=== PATIENT | male | born 1975 | race Caucasian/White ===

== ENCOUNTER 2016-09-11 00:17 | Emergency (ER) | payer OTHER ==
--- NOTE | ~2016-09-11 | CR252 ---
[facility] A Service of [facility] & [facility] RADIOLOGY TEXT RESULTS PATIENT: PALMIRA GONZÁLES LOCATION: [facility] : 77 UNIT #: [id number] AGE: [address]: Jorge Knapp MD SEX: M ORDER DR: [id number] [facility] [address] [facility]. [place], [place] [address] [id number] MR#: [id number] Acc #: [id number] NAME: PALMIRA GONZÁLES : 1975 SEX: M STUDY DATE/TIME: 09/11/2016 1:24 UNIT: [facility] ROOM: STUDY DESCRIPTION: CR Tibia and Fibula 2 Views Lt Attending Physician: Jorge Knapp M.D. Ordering Physician: Jorge Knapp M.D. Primary Care Physician: Rosetta Bullock M.D. MEDICAL IMAGING REPORT This report is preliminary unless electronic signature is present EXAM Left tibia and fibula INDICATION Fell off portable chest 5 days ago with continued pain in tibia and fibula region. FINDINGS AP and lateral views of the tibia and fibula were obtained. There is a metal plate in the proximal tibia with multiple screws. There is no fracture visible. IMPRESSION No evidence of acute injury in the tibia or fibula. Dictated by... Clint Caro M.D. THIS IS AN ELECTRONICALLY VERIFIED REPORT Clint Caro M.D. at 09/11/2016 5:53 AM YENIFER/caty TD: 09/11/2016 02:45 JOB #: [id number] MEDICAL IMAGING REPORT Page 1 of 1 COPY
[~2016-09-11 00:17] MED LIST: DIAZEPAM10 MG PO; FLEXERIL PO; HYDROCODON-ACE1 EAC9 PO; IBUPROFEN PO; KEPPRA250 MG PO; KEPPRA750 M1 PO; KLONOPIN PO; KLONOPIN1 MG PO; MEDROL PO; MOTRIN600 M2 PO; PAROXETINE HCL20 M1 PO; PHENERGAN DM PO; PROAIR HFA8.5 GM IH; SERTRALINE HCL50 M1 PO; TEGRETOL PO; ULTRAM PO; VICODIN 5/500 T1 TAB PO; ZITHROMAX PO; ZOFRAN PO
== END 2016-09-11 02:28 | disposition home or self-care (01) ==
LOC: CED 00:17
DX: S81.812A Laceration without foreign body, left lower leg, initial encounter (principal); L03.116 Cellulitis of left lower limb; F43.10 Post-traumatic stress disorder, unspecified; F31.9 Bipolar disorder, unspecified; J45.909 Unspecified asthma, uncomplicated; Z79.899 Other long term (current) drug therapy; W18.30XA Fall on same level, unspecified, initial encounter; Y92.9 Unspecified place or not applicable
CPT/HCPCS: 73590; 99284

== ENCOUNTER 2016-09-25 21:03 | Inpatient (IN) | payer OTHER ==
[~2016-09-25] VITALS: Ht 188 cm; Wt 83.9 kg
--- NOTE | ~2016-09-25 | PN ---
Unit #: [id number] #: [id number] Patient: PALMIRA GONZÁLES [id number] [facility] [address] [place] [address] [id number] I MR#: [id number] NAME: PALMIRA GONZÁLES ROOM: [facility] Age: 41 Sex: M Admission Date: 09/25/2016 : 1975 Attending Physician: Jw Valencia M.D. Admitting Physician: Jw Valencia M.D. Primary Care Physician: Christen Webster PROGRESS NOTES DATE 09/30/2016 DISCUSSION The patient is abed today and complaining of worsening suicidal ideation. It is his report that his parents have told them that he will not be able to return to the domicile he previously shared with them, and he is expressing great despair over this and reports recurrent suicidal ideation. I have gently but firmly redirected the patient's expectations of inpatient care, and he will be provided with information regarding homeless resources in the [facility]. Dictated by... Jw Valencia M.D. CB/bzg TD: 09/30/2016 13:56 JOB #: [id number] [facility] PROGRESS NOTES Page 1 of 1 X Jw Valencia MD X PROGRESS NOTE
--- NOTE | ~2016-09-25 | HP ---
Unit #: [id number] #: [id number] Patient: PALMIRA GONZÁLES [id number] [place] [address] [id number] I MR#: [id number] NAME: PALMIRA GONZÁLES ROOM: P121 Age: 41 Sex: M Admission Date: 09/25/2016 : 1975 Attending Physician: Jw Valencia M.D. Admitting Physician: Jw Valencia M.D. Primary Care Physician: Rosetta Bullock M.D. HISTORY AND PHYSICAL HISTORY OF PRESENT ILLNESS The patient is a 41-year-old male, admitted to [address] [place] [address] on 09/25/2016, for suicidal ideations and psychosis. PAST MEDICAL HISTORY 1. Seizure disorder. 2. Asthma. 3. Headache. PAST SURGICAL HISTORY Left leg. SOCIAL HISTORY He is disabled and homeless. He dips tobacco but denies alcohol and drug use. FAMILY MEDICAL HISTORY Noncontributory. ALLERGIES No known drug allergies. CURRENT MEDICATIONS Include: 1. Prazosin 2. Valproic acid 3. Diclofenac 4. Seroquel 5. Effexor 6. Gabapentin 7. Vistaril 8. Tramadol 9. Klonopin 10. Doxycycline 11. Keppra 12. Augmentin 13. Lortab REVIEW OF SYSTEMS CONSTITUTIONAL: No fever or chills. The patient complains of a headache. HEENT: Denies any sore throat, ear pain or runny nose. CARDIOVASCULAR: Denies chest pain, irregular heart rhythm or palpitations. CHEST: Denies shortness of breath or cough. No hemoptysis. Unit #: [id number] #: [id number] Patient: PALMIRA GONZÁLES GASTROINTESTINAL: Denies nausea, vomiting, diarrhea or chronic constipation. ENDOCRINE: Denies history of increased thirst or urination. No recent significant weight loss or gain. GENITOURINARY: Denies dysuria, frequency, or hematuria. SKIN: Denies any rashes. HEMATOLOGIC: Denies history of increased bleeding or bruising. MUSCULOSKELETAL: Denies any hot, swollen joints. No generalized muscle pain. NEUROLOGIC: Denies problems with vision or speech. No frequent, severe headaches. No numbness, tingling or weakness in any extremities. Denies loss of bladder or bowel control. PHYSICAL EXAMINATION GENERAL: Note that he is awake, alert, oriented, and in no acute distress. VITAL SIGNS: Temperature 98.7, heart rate 86, respirations 16, blood pressure 138/83. HEIGHT: 6 feet 2 inches. WEIGHT: 185 pounds. SKIN: Warm and dry without rash or lesion. HEENT: Normocephalic. TMs not viewed. Oral and nasal passages clear. Conjunctivae clear. PERRLA. EOMs intact. NECK: Supple without lymphadenopathy or thyromegaly. HEART: Regular rate and rhythm without murmur. LUNGS: Clear. ABDOMEN: Soft, nontender. : Not done. EXTREMITIES: No evidence of cyanosis, clubbing or edema. Moves all without focal deficit. NEUROLOGICAL: Grossly within normal limits. Cranial Nerves: II: Visual macdonald are intact. III, IV AND : Extraocular movements are intact. Pupils are equal, round and reactive to light. V: Facial sensation is grossly normal. VII: Facial movements and expression are normal. VIII: Auditory acuity grossly intact. IX, X: Uvula is midline. Phonation is normal. XI: Patient shrugs shoulders and turns head normally. XII: Tongue protrudes in the midline. Sensory and Motor Function: Sensory and motor sensation is grossly normal. Motor: moves all extremities well. Coordination: Gait is normal. Deep Tendon Reflexes: Intact. IMPRESSION 1. Psychiatric admission. 2. Seizure disorder. 3. Asthma. 4. Headache. RECOMMENDATIONS Psychiatric, per psychiatrist. MEDICAL No contraindications to participating in facility's activities. MEDICAL PROGNOSIS Fair. MEDICAL CONDITION Stable. Unit #: [id number] #: [id number] Patient: PALMIRA GONZÁLES Dictated by... Maryann Xavier/nida TD: 09/26/2016 12:09 JOB #: [id number] HISTORY AND PHYSICAL Page 1 of 1 X LIYZ LANIER APRN HISTORY AND PHYSICAL
--- NOTE | ~2016-09-25 | PN ---
Unit #: [id number] #: [id number] Patient: PALMIRA GONZÁLES [id number] [facility] [address] [place] [address] [id number] I MR#: [id number] NAME: PALMIRA GONZÁLES ROOM: [facility] Age: 41 Sex: M Admission Date: 09/25/2016 : 1975 Attending Physician: Jw Valencia M.D. Admitting Physician: Jw Valencia M.D. Primary Care Physician: Christen Webster PROGRESS NOTES DATE 09/28/2016 DISCUSSION The patient seems a bit brighter today and is reporting some reduction in psychotic thinking. He states that he may be ready for discharge in the near future. At the time of his last hospitalization the patient was noted to be very resistant to discharge so this an encouraging sign. Dictated by... Jw Valencia M.D. CB/vijay TD: 09/28/2016 22:22 JOB #: [id number] [facility] PROGRESS NOTES Page 1 of 1 X Jw Valencai MD PROGRESS NOTE
--- NOTE | ~2016-09-25 | PN ---
Unit #: [id number] #: [id number] Patient: PALMIRA GONZÁLES [id number] [facility] [address] [place] [address] [id number] I MR#: [id number] NAME: PALMIRA GONZÁLES ROOM: [facility] Age: 41 Sex: M Admission Date: 09/25/2016 : 1975 Attending Physician: Jw Valencia M.D. Admitting Physician: Jw Valencia M.D. Primary Care Physician: Christen Webster PROGRESS NOTES DATE 09/27/2016 DISCUSSION The patient is sleeping soundly. Staff reports that he remains seclusive to room and continues to express feelings of paranoia. Dictated by... Jw Valencia M.D. CB/bzg TD: 09/27/2016 13:01 JOB #: [id number] [facility] PROGRESS NOTES Page 1 of 1 X Jw Valencia MD X PROGRESS NOTE
--- NOTE | ~2016-09-25 | DS ---
Unit #: [id number] #: [id number] Patient: PALMIRA GONZÁLES [id number] [facility] [address] [place] [address] [id number] I MR#: [id number] NAME: PALMIRA GONZÁLES ROOM: [facility] Age: 41 Sex: M Admission Date: 09/25/2016 : 1975 Discharge Date: 10/01/2016 Attending Physician: Jw Valencia M.D. Primary Care Physician: Rosetta Bullock M.D. DISCHARGE SUMMARY REASON FOR ADMISSION The patient is a 41-year-old white male, admitted to the [address] [place] [address] unit with complaints of depression and paranoia. HOSPITAL COURSE The patient was admitted to the [address] [place] [address] unit and placed on suicide precautions. He was continued on prescribed home medications. Seroquel was increased to 100 mg q.a.m. and 200 mg at bedtime and Effexor was increased to 225 mg. The patient remained seclusive to room with little participation within therapeutic milieu, but did report improvement in mood as his hospital stay progressed. On 09/30/2016, the patient reported that his parents had informed him that he would not be able to return to the domicile they had previously shared. The patient was therefore provided with information regarding homeless resources at the time of discharge. FINAL DIAGNOSES Major depressive disorder, severe, recurrent, psychotic features; seizure disorder; chronic pain. DISPOSITION ON DISCHARGE The patient is discharged on the following medications; Ultram 50 mg q.6 hours p.r.n. pain, Neurontin 300 mg t.i.d. for pain, Voltaren 50 mg t.i.d. for pain, valproic acid 1500 mg daily for seizure disorder, Minipress 5 mg at bedtime for nightmares, Seroquel 100 mg q.a.m. and 200 mg at nighttime for psychosis, Effexor XR 225 mg daily for depression, Vistaril 50 mg every 6 hours p.r.n. anxiety, Aldactone 100 mg once daily for hypertension, Keppra 250 mg b.i.d. for seizure disorder, Klonopin 1 mg t.i.d. for seizure disorder. DISCHARGE INSTRUCTIONS No dietary or physical restrictions were placed upon the patient at the time of discharge. FOLLOWUP Followup will take place through the auspices of on license of [facility] mental health resources. PROGNOSIS The patient's prognosis is considered fair. Dictated by... Unit #: [id number] #: [id number] Patient: PALMIRA GONZÁLES M.D. CB/modl TD: 10/01/2016 14:54 JOB #: [id number] DISCHARGE SUMMARY Page 1 of 1 X Jw Valencia MD X DISCHARGE SUMMARY
--- NOTE | ~2016-09-25 | PA ---
Unit #: [id number] #: [id number] Patient: PALMIRA GONZÁLES [id number] [facility] [address] [place] [address] [id number] I MR#: [id number] NAME: PALMIRA GONZÁLES ROOM: [facility] Age: 41 Sex: M Admission Date: 09/25/2016 : 1975 Date of Assessment: 09/26/2016 Attending Physician: Jw Valencia M.D. Admitting Physician: Jw Valencia M.D. Primary Care Physician: Rosetta Bullock M.D. PSYCHIATRIC ASSESSMENT IDENTIFYING INFORMATION The patient is a 41-year-old white male admitted to the [address] [place] [address] after he had presented to this facility voicing depressed mood, suicidal ideation and increased delusional thinking. INFORMANT(S) Patient and chart. RELIABILITY Good. CHIEF COMPLAINT None given. HISTORY OF PRESENT ILLNESS The patient is a 41-year-old white male known to this physician from previous admissions to this facility. He is admitted voicing increasing depression as well as psychotic thinking, specifically reporting delusional paranoid thoughts. Patient reports that he has been off medication for some time after having been evicted from his apartment. When last hospitalized at this facility, the patient was prescribed Effexor XR. He was not at that time on any antipsychotic medication but today reports that he is experiencing "delusional thinking." During his last hospitalization, the patient was very resistant to talk of any discharge at any point. At one point, requiring room lockout. For a more complete history of present illness, please refer to previous dictated notes. PAST PSYCHIATRIC HISTORY Reviewed, no changes. FAMILY HISTORY Noncontributory. SOCIAL HISTORY Reviewed, no changes. MEDICAL HISTORY Reviewed, no changes. MEDICATION HISTORY At the time of admission, the patient reports taking the following medications, prazosin, Depakote, diclofenac, Seroquel, venlafaxine, Unit #: [id number] #: [id number] Patient: PALMIRA GONZÁLES gabapentin, Vistaril, tramadol, Klonopin, doxycycline, Keppra, spironolactone, amoxicillin, Lortab. ALLERGIES None reported. MENTAL STATUS EXAM At this time, reveals the patient to be a thin, heavily tattooed white male appearing stated age. He is in no apparent physical distress at the time of the examination. He is awake, alert and oriented in all spheres. His mood is dysphoric. His affect constricted. Speech is a bit garbled and difficult to understand. There are no gross deficits in memory or cognition noted. Intelligence is judged to be in the low average range based on fund of knowledge. The patient is generally cooperative during interview. He is currently endorsing positive suicidal ideation. He denies homicidal ideation. He reports positive paranoid delusional thinking. His judgement and insight appear to be somewhat impaired. ASSETS AND LIABILITIES Patient's assets to be assessed. Liabilities, lack of resources. ADMITTING DIAGNOSES 1. Major depressive disorder, severe, recurrent with psychotic features. 2. Seizure disorder. PSYCHIATRIC PLAN/TREATMENT GOALS The patient remains hospitalized for safety and stabilization. We will reinitiate previously prescribed medications increasing the patient's Effexor XR to 225 mg daily. Klonopin will be discontinued as the patient has not been on this medication and I will also discontinue Lortab as he has not taken this medication since July. The patient will participate in appropriate welsh and milieu activities. It is my concern that the patient may be "fabricating" his psychotic symptoms in order to assure a lengthy stay in the hospital. Even when he had a home, he was very resistant to any talk of discharge and now that he is homeless, my concern is that the patient will want to remain in this hospital almost indefinitely. This will certainly not be allowed to occur. ESTIMATED LENGTH OF STAY Five to seven day. Dictated by... Jw Valencia M.D. CHIKIS/ej TD: 09/26/2016 15:04 JOB #: [id number] Unit #: [id number] #: [id number] Patient: PALMIRA GONZÁLES PSYCHIATRIC ASSESSMENT Page 1 of 1 X Jw Valencia MD X PSYCHIATRIC ASSESSMENT
--- NOTE | ~2016-09-25 | PN ---
Unit #: [id number] #: [id number] Patient: PALMIRA GONZÁLES [id number] [facility] [address] [place] [address] [id number] MR#: [id number] NAME: PALMIRA GONZÁLES ROOM: [facility] Age: 41 Sex: M Admission Date: 09/25/2016 : 1975 Attending Physician: Jw Valencia M.D. Admitting Physician: Jw Valencia M.D. Primary Care Physician: Christen Webster PROGRESS NOTES DATE 09/29/2016 DISCUSSION The patient remains seclusive to room but otherwise voices no new complaints when seen today. He appears to be approaching his psychiatric baseline and discharge should take place as early as tomorrow. Dictated by... Jw Valencia M.D. CB/vijay TD: 09/29/2016 21:22 JOB #: [id number] [facility] PROGRESS NOTES Page 1 of 1 X Jw Valencia MD X PROGRESS NOTE
[2016-09-26 09:47] LABS: ALBUMIN SERUM 4.5 g/dL (3.5-5.0); BASOPHIL# 0.1 X10e3 (0-0.3); BASOPHIL% 0.8 % (0-2.5); BILIRUBIN,TOTAL 0.8 mg/dL (0.2-2.0); CALCIUM SERUM 9.7 mg/dL (8.4-10.2); CREATININE SERUM 1.3 mg/dL (0.6-1.4); EOSINOPHIL# 0.3 X10e3 (0-0.7); EOSINOPHIL% 3.6 % (0.0-7.0); GLOM FILT RATE Estimated 68.3 mL/min (>60); HEMATOCRIT 45.4 % (38.0-50.0); HEMOGLOBIN 15.4 gm/dL (13.0-16.0); LYMPHOCYTE# 1.5 X10e3 (1.0-3.5); LYMPHOCYTE% 16.4 % (17.0-45.0); MEAN CELL VOLUME 87.7 FL (83-96); MEAN CORPUSCULAR HEMOGLOBIN 29.9 PG (28-34); MEAN PLATELET VOLUME 8.7 FL (6.5-11.5); MONOCYTE# 1.1 X10e3 (0-1.0); MONOCYTE% 12.7 % (3.0-12.0); NEUTROPHIL% 66.5 % (40-75); PLATELET COUNT 132 X10e3 (140-420); POTASSIUM 4.8 mmol/L (3.5-5.1); PROTEIN TOTAL SERUM 8.1 g/dL (6.0-8.3); RED BLOOD COUNT 5.17 X10e (3.90-5.60); RED CELL DISTRIBUTION WIDTH 15.2 % (11.0-15.5); WHITE BLOOD COUNT 9.1 X10e3 (4.0-10.5)
[2016-09-26 10:08] LABS: DIFF IND NO
== END 2016-10-01 18:39 | disposition home or self-care (01) | DRG 885 ==
LOC: P1S 22:43
PROVIDERS: Specialist
DX: F33.3 Major depressive disorder, recurrent, severe with psychotic symptoms (principal); G40.909 Epilepsy, unspecified, not intractable, without status epilepticus; R45.851 Suicidal ideations; Z59.0 Homelessness; F17.220 Nicotine dependence, chewing tobacco, uncomplicated; J45.909 Unspecified asthma, uncomplicated
CPT/HCPCS: 80053; 85025

== ENCOUNTER 2016-10-01 23:00 | Inpatient (IN) | payer OTHER ==
[~2016-10-01] VITALS: Ht 188 cm; Wt 88.5 kg
--- NOTE | ~2016-10-01 | PN ---
Unit #: [id number] #: [id number] Patient: PALMIRA GONZÁLES [id number] [facility] [address] [place] [address] [id number] MR#: [id number] NAME: PALMIRA GONZÁLES ROOM: 15 Age: 41 Sex: M Admission Date: 10/02/2016 : 1975 Attending Physician: Jw Valencia M.D. Admitting Physician: Jw Valencia M.D. Primary Care Physician: Primary Care Physician Magalis KINNEY PROGRESS NOTES DATE 10/03/2016 DISCUSSION The patient is a bit brighter today. He reports that he has made arrangements to stay with his brother following discharge. I will continue room lockout precautions given my concerns that the patient will attempt to sabotage discharge. Dictated by... Jw Valencia M.D. CB/ej TD: 10/03/2016 15:33 JOB #: [id number] [facility] PROGRESS NOTES Page 1 of 1 X Jw Valencia MD PROGRESS NOTE
--- NOTE | ~2016-10-01 | PA ---
Unit #: [id number] #: [id number] Patient: PALMIRA GONZÁLES [id number] [facility] [address] [place] [address] [id number] MR#: [id number] NAME: PALMIRA GONZÁLES ROOM: [facility] Age: 41 Sex: M Admission Date: 10/02/2016 : 1975 Date of Assessment: 10/02/2016 Attending Physician: Jw Valencia M.D. Admitting Physician: Jw Valencia M.D. Primary Care Physician: Primary Care Physician No PSYCHIATRIC ASSESSMENT IDENTIFYING INFORMATION The patient is a 41-year-old white male readmitted to the [address] [place] [address] Unit after he had presented to [facility] claiming to be suicidal with plan to run into traffic. CHIEF COMPLAINT None given. INFORMANT(S) Patient and chart, reliability fair. HISTORY OF PRESENT ILLNESS The patient is a 41-year-old white male discharged from this facility yesterday afternoon. The patient reports that [place] go [place] the [employer] as he has been barred from returning to the domicile he previously shared with his parents. He reports that upon arriving downtown, he "got lost" and became unhappy. He went to the emergency room at [facility] claiming to be suicidal with plan to jump into traffic. He continues to endorse positive suicidal ideation during today's interview. For more complete history of present illness, please refer to previously dictated notes. PAST PSYCHIATRIC HISTORY Reviewed, no changes. PAST MEDICAL HISTORY Reviewed, no changes. MEDICATIONS Augmentin, Effexor, Seroquel, Minipress, Depakote, Voltaren, Neurontin, Ultram, Keppra, Klonopin, and Aldactone. ALLERGIES None. FAMILY HISTORY Reviewed, no changes. SOCIAL HISTORY Reviewed, no changes. MENTAL STATUS EXAMINATION Examination at this time reveals the patient to be a thin disheveled Unit #: [id number] #: [id number] Patient: PALMIRA GONZÁLES heavily tattooed white male appearing stated age. He is in no apparent physical distress at the time of examination. He is awake, alert, and oriented in all spheres. His mood is mildly dysphoric, his affect constricted. Speech is generally well coherent. There are no gross deficits in memory or cognition noted. Intelligence is judged to be in the average range based on fund of knowledge. The patient is generally cooperative during interview. He continues to endorse positive suicidal ideation. He denies homicidal ideation. He denies any psychotic symptoms. His judgment and insight appear to be at baseline. ASSETS AND LIABILITIES The patient's assets are to be assessed. Liabilities: Lack of resources. DIAGNOSTIC IMPRESSION 1. Dysthymic disorder. 2. Antisocial personality disorder. 3. Seizure disorder. TREATMENT PLAN The patient remains hospitalized for safety and stabilizations. To assure his safety, he has been placed on room lockout precautions from 6 a.m. to 10 p.m. We will continue other previously prescribed medications. The patient's expectations of inpatient care are today firmly redirected. ESTIMATED LENGTH OF STAY 5 to 7 days. Dictated by... Jw Valencia M.D. Em TD: 10/02/2016 14:54 JOB #: [id number] PSYCHIATRIC ASSESSMENT Page 1 of 1 X Jw Valencia MD X PSYCHIATRIC ASSESSMENT
--- NOTE | ~2016-10-01 | HP ---
Unit #: [id number] #: [id number] Patient: GEORGES GONZÁLES [id number] [facility] [address] [place] [address] [id number] Rich MR#: [id number] NAME: GEORGES GONZÁLES ROOM: [facility] Age: 41 Sex: M Admission Date: 10/02/2016 : 1975 Attending Physician: Jw Valencia M.D. Admitting Physician: Jw Valencia M.D. Primary Care Physician: Primary Care Physician No HISTORY AND PHYSICAL HISTORY OF PRESENT ILLNESS Georges is a 41 year old admitted to [address] [place] [address] with depression and verbalizing wanting to hurt himself. He describes himself as homeless, tells me he does not want to live at [place] because it is dirty. Patient was seen and H and P dated 09/26/16 was reviewed. This is current except he has an area along his left ruiz that has been recently I and D. Packing gauze is still in place. There is no increased redness, heat or tenderness noted. ASSESSMENT Recent I and D of what appears to be a hematoma along his ruiz. There is no evidence of secondary infection. Plan will be to keep this area clean with soap and water, leave the packing in for another 24 hours and then remove it. Please see H and P dated 09/26/16 for complete history and physical exam. Dictated by... Yen Bansal P.A.-C. for Christen Dickson/ej TD: 10/02/2016 15:45 JOB #: [id number] HISTORY AND PHYSICAL Page 1 of 1 X Yen Bansal HISTORY AND PHYSICAL
--- NOTE | ~2016-10-01 | DS ---
Unit #: [id number] #: [id number] Patient: PALMIRA GONZÁLES [id number] [facility] [address] [place] [address] [id number] I MR#: [id number] NAME: PALMIRA GONZÁLES ROOM: [facility] Age: 41 Sex: M Admission Date: 10/02/2016 : 1975 Discharge Date: 10/04/2016 Attending Physician: Jw Valencia M.D. Primary Care Physician: Primary Care Physician No DISCHARGE SUMMARY REASON FOR ADMISSION The patient is a 41-year-old white male, admitted to the [address] [place] [address] in transfer from [facility], where he had presented claiming to be suicidal with a plan to jump into traffic. HOSPITAL COURSE The patient was admitted to the [address] [place] [address] unit and placed on suicide precautions to assure his safety. Room lockout was ordered and the patient was continued on previously prescribed medications. By 10/04/2016, the patient made arrangements to stay with his brother and discharge was ordered. FINAL DIAGNOSES Dysthymic disorder; antisocial personality disorder; seizure disorder; hematoma of right tibia. DISPOSITION ON DISCHARGE The patient is discharged on the following medications; Augmentin 875 mg b.i.d. for infection, Effexor XR 225 mg daily for depression, Seroquel 100 mg q.a.m. and 200 mg at bedtime for mood stabilization, Minipress 5 mg at bedtime for nightmares, Depakote 1500 mg b.i.d. for seizure disorder, Clinoril 150 mg b.i.d. for pain, Neurontin 300 mg b.i.d. for seizure disorder, Keppra 250 mg b.i.d. for seizure disorder, Aldactone 50 mg q.6 hours for swelling. No dietary or physical restrictions were placed upon the patient at the time of discharge. FOLLOWUP Followup will take place through the auspices of community mental health resources. PROGNOSIS The patient's prognosis remains guarded. Dictated by... Jw Valencia M.D. CB/miranda TD: 10/04/2016 12:11 JOB #: [id number] Unit #: [id number] #: [id number] Patient: PALMIRA GONZÁLES DISCHARGE SUMMARY Page 1 of 1 X Jw Valencia MD DISCHARGE SUMMARY
== END 2016-10-04 12:37 | disposition home or self-care (01) | DRG 881 ==
LOC: P1S 10-02 03:12
DX: F34.1 Dysthymic disorder (principal); G40.909 Epilepsy, unspecified, not intractable, without status epilepticus; R45.851 Suicidal ideations; L76.32 Postprocedural hematoma of skin and subcutaneous tissue following other procedure; F60.2 Antisocial personality disorder
CPT/HCPCS: 86592

== ENCOUNTER 2016-10-08 07:07 | Emergency (ER) | payer OTHER ==
[~2016-10-08] VITALS: Ht 188 cm; Wt 79.4 kg
--- NOTE | ~2016-10-08 | CT71 ---
[facility] A Service of [facility] & [facility] RADIOLOGY TEXT RESULTS PATIENT: PALMIRA GONZÁLES LOCATION: [facility] : [birth year] UNIT #: [id number] AGE: [address]: Jogre Knapp MD SEX: M ORDER DR: [id number] [facility] [address] [facility] [address] [place], [place] [address] [id number] E MR#: [id number] Acc #: [id number] NAME: PALMIRA GONZÁLES : 1975 SEX: M STUDY DATE/TIME: 10/08/2016 8:51 UNIT: [facility] ROOM: STUDY DESCRIPTION: CT Head Wo Contrast Attending Physician: Jorge Knapp M.D. Ordering Physician: Jorge Knapp M.D. Primary Care Physician: No Primary Care Physician MEDICAL IMAGING REPORT This report is preliminary unless electronic signature is present EXAM Head CT, 10/08. INDICATIONS Right side headache today. History of hypertension, PTSD, schizophrenia, and bipolar disorder. Patient out of meds. FINDINGS Axial images were obtained from the base to the vertex without contrast. Comparison made with 05/27/2012. This CT exam was performed with one or more of the following radiation dose reduction techniques: automatic exposure control, adjustment of mA and/or kV according to patient size, and iterative reconstruction. Ventricular size and configuration are normal. No acute infarct or hemorrhage is seen. There are no masses. There is no skull fracture. There is a mild degree of generalized atrophy. IMPRESSION Mild generalized atrophy. No acute findings. No change from prior. Dictated by... Lamont Sue Jr., M.D. THIS IS AN ELECTRONICALLY VERIFIED REPORT Lamont Sue Jr., M.D. at 10/08/2016 4:45 PM CJ/pam TD: 10/08/2016 13:49 JOB #: [id number] MEDICAL IMAGING REPORT Page 1 of 1 COPY
--- NOTE | ~2016-10-08 | CR72 ---
[facility] A Service of [facility] & [facility] RADIOLOGY TEXT RESULTS PATIENT: PALMIRA GONZÁLES LOCATION: [facility] : [birth year] UNIT #: [id number] AGE: [address]: Jorge Knapp MD SEX: M ORDER DR: [id number] [facility] [address] [place] [address] [facility] [place], [place] [address] [id number] E MR#: [id number] Acc #: [id number] NAME: PALMIRA GONZÁLES : 1975 SEX: M STUDY DATE/TIME: 10/08/2016 7:55 UNIT: [facility] ROOM: STUDY DESCRIPTION: CR Chest Single View Portable Attending Physician: Jorge Knapp M.D. Ordering Physician: Jorge Knapp M.D. Primary Care Physician: No Primary Care Physician MEDICAL IMAGING REPORT This report is preliminary unless electronic signature is present EXAM Portable chest, 10/08. INDICATION Chills, shaking, nausea for 2 days. FINDINGS AP portable chest is compared with 09/24/2013. Cardiac and mediastinal contours are normal. There is some atelectasis at the left base. Lungs are otherwise clear. No pneumothorax. IMPRESSION Mild left base atelectasis, otherwise no active disease. Dictated by... Lmaont Sue Jr., M.D. THIS IS AN ELECTRONICALLY VERIFIED REPORT Lamont Sue Jr., M.D. at 10/08/2016 4:45 PM CJ/chele TD: 10/08/2016 13:40 JOB #: [id number] MEDICAL IMAGING REPORT Page 1 of 1 COPY
[2016-10-08 08:00] LABS: BASOPHIL% 0.3 % (0-2.5); EOSINOPHIL% 0.1 % (0.0-7.0); HEMOGLOBIN 14.4 gm/dL (13.0-16.0); LYMPHOCYTE# 0.8 X10e3 (1.0-3.5); LYMPHOCYTE% 7.8 % (17.0-45.0); MEAN CELL VOLUME 85.7 FL (83-96); MEAN CORPUSCULAR HEMOGLOBIN 29.3 PG (28-34); MEAN CORPUSCULAR HGB CONC 34.2 g/dL (30-36); MEAN PLATELET VOLUME 7.2 FL (6.5-11.5); MONOCYTE# 0.9 X10e3 (0-1.0); MONOCYTE% 9.5 % (3.0-12.0); NEUTROPHIL# 8.3 X10e3 (1.5-7.1); NEUTROPHIL% 82.3 % (40-75); PLATELET COUNT 186 X10e3 (140-420); RED BLOOD COUNT 4.91 X10e (3.90-5.60); RED CELL DISTRIBUTION WIDTH 15.3 % (11.0-15.5)
[2016-10-08 08:02] LABS: DIFF IND NO
[2016-10-08 08:29] LABS: ALBUMIN SERUM 4.1 g/dL (3.5-5.0); ALKALINE PHOSPHATASE 52 U/L (32-92); ALT (SGPT) 13 U/L (10-40); AST (SGOT) 16 U/L (10-42); BILIRUBIN, DIRECT 0.1 mg/dL (0.0-0.2); BILIRUBIN,INDIRECT 0.8 mg/dL (0.0-0.9); BILIRUBIN,TOTAL 0.9 mg/dL (0.2-2.0); BLOOD UREA NITROGEN 24 mg/dL (9-23); CALCIUM SERUM 9.1 mg/dL (8.4-10.2); CARBON DIOXIDE 26 mmol/L (22-31); CHLORIDE 104 mmol/L (100-111); CREATININE SERUM 1.2 mg/dL (0.6-1.4); GLOM FILT RATE Estimated 75.2 mL/min (>60); GLUCOSE FASTING 94 mg/dL (70-110); PROTEIN TOTAL SERUM 7.7 g/dL (6.0-8.3); SODIUM 140 mmol/L (135-145)
[2016-10-08 08:31] LABS: ALCOHOL BLOOD <5 mg/dL (0)
[2016-10-08 09:32] LABS: AMPHETAMINE NEG (NEG); BARBITURATES NEG (NEG); BENZODIAZEPINES POS (NEG); COCAINE NEG (NEG); MARIJUANA POS (NEG); OPIATES NEG (NEG); TRICYCLIC ANTIDEPRESSANTS POS (NEG); U METHADONE NEG (NEG)
== END 2016-10-08 10:43 | disposition home or self-care (01) ==
LOC: CED 07:07
PROVIDERS: Emergency Medicine
DX: F41.1 Generalized anxiety disorder (principal); J45.909 Unspecified asthma, uncomplicated; F17.200 Nicotine dependence, unspecified, uncomplicated; F20.9 Schizophrenia, unspecified; Z98.890 Other specified postprocedural states
CPT/HCPCS: 36415; 70450; 71010; 80048; 80076; 80307; 85025; 96361; 96374; 96375; 99285; G0480; J2060; J2405